=== PATIENT | male | born 1960 | race Caucasian/White ===

== ENCOUNTER 2020-07-26 13:08 | Emergency (ER) | payer OTHER, SELFPAY ==
[2020-07-26 13:14] VITALS: BP 157/119; PULSE 104; RESP 16; TEMP 36.6; O2SAT 96
--- NOTE | 2020-07-26 14:09 | ED.GENADULT ---
HPI - General Adult General Chief complaint: Upper Respiratory Infection Stated complaint: pos acid reflux/sore throat Time Seen by Provider: 07/26/20 13:24 Source: patient and RN notes reviewed Mode of arrival: ambulatory Limitations: no limitations History of Present Illness HPI narrative: Patient presents today complaining of sore throat/acid reflux symptoms. This is a chronic issue for patient that he has been dealing with since at least November per his medical records. He has seen his PCP and continuity editor, Dr. Workman several times. He had an EGD done in November as well that showed gastritis. He has been on and off omeprazole. Today he states that the omeprazole was causing, choking that I was passing out , so he is no longer taking any sort of PPI or histamine zhen. He last saw his PCP in April for dizziness, mentioned his GERD symptoms and was restarted on Prilosec, but is not taking it currently. States he is coming to urgent care today for evaluation because he has spent thousands of dollars with GI and PCP and does not feel like they are curing him of his symptoms. He is hoping that we can get to the bottom of his symptoms today and get him started on some medication for treatment. Patient continues to smoke, drink quite a bit of alcohol, drinks soda, and has not made strides to change his diet in any way. MD complaint: GERD Related Data Home Medications Medication Instructions Recorded Confirmed mv-[id number]-vit C-Glu-Janny [id number] 250 mg PO DAILY 11/21/19 04/09/20 [Airborne (with lysine acetate)] Allergies Allergy/AdvReac Type Severity Reaction Status Date / Time No Known Allergies Allergy Verified 04/09/20 16:41 Review of Systems Review of Systems: Narrative: CONSTITUTIONAL: Denies body aches, fever, chills, or sweats. EYES: Denies visual changes, redness, or discharge. ENT: Denies rhinorrhea, congestion, sore throat, or otalgia. CARDIOVASCULAR: Denies chest pain, palpitations, or edema. RESPIRATORY: Denies cough or dyspnea. GASTROINTESTINAL: Denies abdominal pain, nausea, vomiting, or diarrhea. GERD GENITOURINARY: Denies dysuria or hematuria. SKIN: Denies rash, itching, or wounds. MUSCULOSKELETAL: Denies back pain, joint pain, or myalgia. NEUROLOGIC: Denies headache, numbness, tingling, or weakness. PSYCH: Denies depression or anxiety. [facility]LY [facility] Past Medical History Medical History (Updated 07/26/20 @ 14:15 by Negin Orozco, [facility], ) Adenomatous colon polyp Gastritis GERD (gastroesophageal reflux disease) Hypertension Tobacco abuse Social History Social History (Updated 07/26/20 @ 14:15 by Negin Orozco, [facility], ) Smoking status: Current every day smoker Tobacco type: cigarettes Second hand tobacco smoke exposure: Yes Alcohol intake: current Substance use: never Substance use type: does not use Comments At time of signature, I have reviewed and agree with nursing past medical, surgical, social and family history unless otherwise noted. Please see nursing chart for further information. There is no relevant family history pertinent to the presenting complaint Exam Narrative: Exam Narrative: GENERAL: Well-appearing, well-nourished, and in no acute distress. HEAD: Normocephalic, atraumatic. EYES: EOMI. No redness or drainage. Conjunctivae normal. ENT: Mucous membranes pink and moist. Nares clear. No rhinorrhea. Throat normal. Uvula midline. NECK: Normal AROM. Supple. No lymphadenopathy. CHEST: No respiratory distress. Clear to auscultation. HEART: Regular rate and rhythm. No murmur appreciated. Normal peripheral pulses. ABDOMEN: Soft, nontender, nondistended, normal active bowel sounds. MUSCULOSKELETAL: No bony tenderness. EXTREMITIES: Normal range of motion. No edema. SKIN: Warm, dry, no rash. Capillary refill normal. Normal skin turgor. NEURO: No focal deficits. Alert and oriented x3. Gait steady. PSYCH: Normal affect. No signs of depression or anxiety.
== END 2020-07-26 13:48 | disposition home or self-care (01) ==
PROVIDERS: Emergency Provider Nurse Practitioner; PCP Family Medicine
DX: K21.9 Gastro-esophageal reflux disease without esophagitis (principal); F17.210 Nicotine dependence, cigarettes, uncomplicated; I10 Essential (primary) hypertension
CPT/HCPCS: 99213; G0463

== ENCOUNTER 2022-10-07 14:56 | Emergency (ER) | payer OTHER, SELFPAY ==
--- NOTE | 2022-10-07 14:57 | ED.URI ---
HPI - URI/Sore Throat General Chief Complaint: Eye Problems Stated Complaint: pink eye Time Seen by Provider: 10/07/22 14:58 Source: patient Mode of arrival: ambulatory Limitations: no limitations History of Present Illness HPI Narrative: Abdullahi is a 62-year-old male patient presenting to the clinic today with complaints of possible pinkeye. 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 He reports he has had some bilateral eye itching and clear drainage coming from bilateral eyes. He denies any visual changes. Related Data Allergies Allergy/AdvReac Type Severity Reaction Status Date / Time hydrochlorothiazide Allergy Rash Verified 10/07/22 15:04 lisinopril Allergy Rash Verified 10/07/22 15:04 Review of Systems Review of Systems: Pertinent positives per HPI. Patient denies any fever, chills, rash, headache, visual changes, dizziness, cough, runny nose, sore throat, shortness of breath, chest pain, palpitations, nausea, vomiting, diarrhea, constipation, abdominal pain, or any urinary issues. PMFSH Past Medical History Medical History Adenomatous colon polyp Gastritis GERD (gastroesophageal reflux disease) Hypertension Shingles 09/2019 Tobacco abuse Family History Family History Father Heart disease, Onset Age: 60 unknown reason Dx Mother Diabetes mellitus Mother Diabetes mellitus Social History Social History Smoking packs per day: 1 Smoking cigarettes per day: 20.0 Years smoked: 43 Smoking pack-years: 43.00 Smoking status: Current every day smoker Tobacco type: cigarettes Second hand tobacco smoke exposure: Yes Alcohol intake: current Alcohol use details: Drinks 1 bottle of wine every day in the evening Substance use: never Substance use type: does not use Comments At the time of my signature, I reviewed and agree with the nursing past medical, surgical, social, and family history. There is no relevant family history pertinent to the patient complaint. Exam Narrative: General: Well-developed, well nourished, in no apparent distress Head: Normocephalic, atraumatic Eyes: Pupils equally round and reactive to light bilaterally, EOM intact, sclera and conjunctive injected, clear discharge, lids with mild swelling bilateral Ears: TMs intact and clear, ear canals clear, no drainage, grossly hearing normal. Nose: Nares patent, no discharge, no inflammation, no sinus tenderness. Mouth: Oropharynx without lesions or masses, good dentition, MMM. Neck: Supple, trachea midline, no enlargement of anterior or posterior cervical nodes, no thyroid masses or goiter palpable. Cardio: Regular rate and rhythm, s1 and s2 normal, no murmur appreciated. Resp: Clear to auscultation bilaterally anteriorly and posteriorly, no rhonchi, rales, wheezing or rubs Course Course Emergency Course: Portions of this record may have been created with voice recognition software. Level of Care: Express Care Visit Vital Signs Vital signs: Vital signs reviewed MDM - URI/Sore Throat MDM Narrative Medical decision making narrative: At the time of visit patient is resting comfortably on the exam table. I suspect patient has allergic conjunctivitis. Prescription for TobraDex was sent to the pharmacy to cover any secondary bacterial infection. Supportive measures were discussed with the patient he voiced understanding of discharge instruction and agrees to treatment plan Differential Diagnosis Differential diagnosis: Likely other (Allergic conjunctivitis) Discharge Plan Discharge Clinical Impression: Acute allergic conjunctivitis of both eyes Patient Disposition: Home, Self-Care Condition: Stable Instructions: Antibiotic Form, Conjunctivitis (ED) Additional Instructions:
[2022-10-07 15:08] VITALS: BP 135/95; PULSE 102; RESP 16; TEMP 36.9; O2SAT 98
== END 2022-10-07 15:13 | disposition home or self-care (01) ==
PROVIDERS: Emergency Provider Nurse Practitioner Family; PCP Family Medicine
DX: H10.13 Acute atopic conjunctivitis, bilateral (principal); I10 Essential (primary) hypertension; F17.210 Nicotine dependence, cigarettes, uncomplicated
CPT/HCPCS: 99213; G0463

== ENCOUNTER → 2023-04-10 09:10 | Outpatient (CLI) | payer OTHER, SELFPAY ==
--- NOTE | ~2023-04-10 | XR_ITS ---
Clinical Indication: Cough PA and lateral views of the chest: Comparison: None Findings: The lungs are clear, without evidence of focal consolidation or pleural effusion. Possible COPD. Cardiomediastinal silhouette is within normal limits. Bones and soft tissues are unremarkable. Impression: Possible COPD. Clear lungs. Reviewed, dictated and finalized at location . Impression: Possible COPD. Clear lungs.
== END ==
PROVIDERS: PCP Family Medicine; Visit Provider Nurse Practitioner Family
DX: R05.9 Cough, unspecified (principal); R06.00 Dyspnea, unspecified; Z87.891 Personal history of nicotine dependence
CPT/HCPCS: 71046

== ENCOUNTER 2023-04-28 11:01 | Emergency (ER) | payer OTHER, SELFPAY ==
--- NOTE | 2023-04-28 11:02 | ED.SOB ---
HPI - SOB/Dyspnea General Chief Complaint: Shortness of Breath/Dyspnea Stated Complaint: can't breathe/dizzy Time Seen by Provider: 04/28/23 11:01 Source: patient Mode of arrival: ambulatory Limitations: no limitations History of Present Illness HPI Narrative: Abdullahi is a 62-year-old male patient presenting to the clinic today with complaints of difficulty breathing, near syncope, palpitations, and dizziness that occurred approximately 2 hours ago. 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 States initially when symptoms started he felt as though he was going to pass out. Co-worker brought him over to the [facility]. States he does feel less short of breath while sitting on the stretcher. Is a current smoker. States he is bringing up brown phlegm at times. Denies any fever or chills. Related Data Allergies Allergy/AdvReac Type Severity Reaction Status Date / Time No Known Allergies Allergy Verified 04/07/23 15:20 Review of Systems Review of Systems: Pertinent positives per HPI. Patient denies any fever, chills, rash, headache, visual changes, runny nose, sore throat, chest pain, nausea, vomiting, diarrhea, constipation, abdominal pain, or any urinary issues. [facility] Past Medical History Medical History Adenomatous colon polyp Chronic left hip pain Gastritis GERD (gastroesophageal reflux disease) Hypertension Shingles 09/2019 Tobacco abuse Family History Family History Father Heart disease, Onset Age: 60 unknown reason Dx Mother Diabetes mellitus Mother Diabetes mellitus Social History Social History Smoking packs per day: 1 Smoking cigarettes per day: 20.0 Years smoked: 43 Smoking pack-years: 43.00 Smoking status: Former smoker Tobacco type: cigarettes Second hand tobacco smoke exposure: Yes Alcohol intake: current Alcohol use details: Drinks 1 bottle of wine every day in the evening Substance use: never Substance use type: does not use Lack of Transportation: No Lack of Food: Never True Current Housing: I Have Housing Concerned About Future Housing: No Difficulty Paying Gas/Electric Bills: No Difficulty Paying for Meds: No Currently Unemployed: No Education: High School Diploma/GED Difficulty w/ Childcare or Family Care: No Occupation/Education: occupation Gender identity (if verbalized by the patient): Male Agree to blood products: Yes Comments At the time of my signature, I reviewed and agree with the nursing past medical, surgical, social, and family history. There is no relevant family history pertinent to the patient complaint. Exam Narrative: General: Well-developed, obese, in no apparent distress Head: Normocephalic, atraumatic Eyes: Pupils equally round and reactive to light bilaterally, EOM intact, sclera and conjunctive clear, no discharge, lids normal Ears: TMs intact and clear, ear canals clear, no drainage, grossly hearing normal. Nose: Nares patent, no discharge, no inflammation, no sinus tenderness. Mouth: Oropharynx without lesions or masses, good dentition, MMM. pallor appearance around lips Neck: Supple, trachea midline, no enlargement of anterior or posterior cervical nodes, no thyroid masses or goiter palpable. Cardio: Tachycardic, sinus rhythm, s1 and s2 normal, no murmur appreciated. Resp: Diminished breath sounds, no rhonchi, rales, wheezing or rubs, able to speak is 6-7 words before taking a breath, SpO2 98% on room air Extremities: No deformity, no edema, no cyanosis, capillary refill less than 2 seconds, peripheral pulses palpable and strong. Course Course Emergency Course: Portions of this record may have been created with voice recognition software. Level of Care: Express Care Visit Vital Si
[2023-04-28 11:10] VITALS: BP 93/64; PULSE 125; RESP 16; TEMP 36.2; O2SAT 98
--- NOTE | 2023-04-28 11:21 | ECG_ITS ---
Measurements Intervals [place] Rate: 119 P: 49 VT: 147 QRS: 51 QRSD: 71 T: 65 QT: 292 QTc: 412 Interpretive Statements SINUS TACHYCARDIA OTHERWISE NORMAL ECG COMPARED TO ECG 04/28/2023 11:24:05 NO CHANGE Electronically Signed On 04-28-2023 16:15:38 CDT by Joshua Carter M.D.
[2023-04-28 11:29] VITALS: PULSE 125; RESP 16
== END 2023-04-28 11:45 | disposition left against medical advice (07) ==
PROVIDERS: Emergency Provider Nurse Practitioner Family; PCP Family Medicine
DX: R00.2 Palpitations (principal); R06.02 Shortness of breath; R42 Dizziness and giddiness; K21.9 Gastro-esophageal reflux disease without esophagitis; I10 Essential (primary) hypertension; F17.210 Nicotine dependence, cigarettes, uncomplicated
CPT/HCPCS: 93005; 99213; G0463

== ENCOUNTER 2023-04-28 11:59 | Observation (INO) | payer OTHER, SELFPAY ==
[2023-04-28] VITALS (33 sets, daily range): BP systolic 77–128; BP diastolic 48–91; PULSE 84–125; RESP 11–32; TEMP 36.4–36.6; O2SAT 96–100; BMI 34.7
--- NOTE | ~2023-04-28 | XR_ITS ---
Portable chest x-ray Comparison: 04/10/2023 Clinical History: Shortness of breath Findings: Lungs are clear, without focal consolidation or pleural effusion. Cardiomediastinal silho uette is stable. Bones and soft tissues are unremarkable. Impression: Clear lungs. Reviewed, dictated and finalized at location . Impression: Clear lungs.
--- NOTE | ~2023-04-28 | CT_ITS ---
EXAMINATION: CT chest abdomen pelvis wo con DATE: 04/28/2023 14:46 INDICATION: Shortness of breath. Hypertension. TECHNIQUE: Computed tomography (CT) of the chest, abdomen, and pelvis was performed without intraveno us contrast. Automated exposure control and iterative reconstruction technique were employed. The dos e-length product was 1633.34 mGy-cm. COMPARISON: None FINDINGS: CHEST CT: Mild bilateral parahilar emphysematous change. Mild atelectasis at the bilateral lung bases. No pneum onia, pulmonary edema or pleural effusion. Heart size normal. Atherosclerotic coronary artery calcifi c location. No pericardial effusion. No pathologically enlarged thoracic lymphadenopathy. There are b ridging osteophytes at multiple levels in the spine, consistent with diffuse idiopathic skeletal hype rostosis (DISH). ABDOMEN/PELVIS CT: Liver, gallbladder, spleen, pancreas, bilateral adrenal glands and kidneys are normal. There is moder ate diverticulosis along the descending and sigmoid colon. There are some wall thickening along the s igmoid colon without surrounding pericholecystic infiltrate stranding to suggest an acute colitis and this may be related to sequela of chronic diverticulitis. Small bowel and appendix are normal. Bladd er is normal. No free intraperitoneal gas or fluid. No pathologically enlarged abdominal or pelvic ly mphadenopathy. Bilateral small fat-containing inguinal hernias. L5 spondylolysis with bilateral pars intra-articular is defects and 8 mm anterolisthesis of L5 on S1. IMPRESSION: 1. Diverticulosis with wall thickening along a portion of the mid sigmoid colon but without surroundi ng inflammatory stranding to suggest acute colitis or diverticulitis. This could represent sequela of chronic diverticulitis but would recommend further evaluation with colonoscopy if this has not been recently performed 2. No acute intrathoracic, abdominal or pelvic process. Reviewed, dictated and finalized at location A. IMPRESSION: 1. Diverticulosis with wall thickening along a portion of the mid sigmoid colon but without surrounding inflammatory stranding to suggest acute colitis or div erticulitis. This could represent sequela of chronic diverticulitis but would r ecommend further evaluation with colonoscopy if this has not been recently perf ormed 2. No acute intrathoracic, abdominal or pelvic process.
--- NOTE | 2023-04-28 12:11 | ECG_ITS ---
Measurements Intervals [place] Rate: 121 P: 47 MD: 142 QRS: 43 QRSD: 78 T: 60 QT: 293 QTc: 416 Interpretive Statements SINUS TACHYCARDIA OTHERWISE NORMAL ECG INTERPRETATION BASED ON A DEFAULT AGE OF 40 YEARS NO PREVIOUS ECG AVAILABLE FOR COMPARISON Electronically Signed On 04-28-2023 16:14:15 CDT by Joshua Carter M.D.
--- NOTE | 2023-04-28 12:14 | ED.SOB ---
HPI - SOB/Dyspnea General Chief Complaint: Shortness of Breath/Dyspnea Stated Complaint: SOB Time Seen by Provider: 04/28/23 12:09 Source: patient Mode of arrival: ambulatory Limitations: no limitations History of Present Illness HPI Narrative: 62 years old white male presents with intermittent shortness of breath on exertion over 2 weeks. Patient reported having similar symptoms months/years ago without a specific diagnosis. But lately got worse. He denied any chest pain, fever, chills, nausea, vomiting, headache, back pain. Patient does not take antiplatelet or anticoagulant medications Related Data Allergies Allergy/AdvReac Type Severity Reaction Status Date / Time No Known Allergies Allergy Verified 04/07/23 15:20 Review of Systems Review of Systems: All systems reviewed & are unremarkable except as noted in HPI and below PMFSH Past Medical History Medical History Adenomatous colon polyp Chronic left hip pain Gastritis GERD (gastroesophageal reflux disease) Hypertension Shingles 09/2019 Tobacco abuse Family History Family History Father Heart disease, Onset Age: 60 unknown reason Dx Mother Diabetes mellitus Mother Diabetes mellitus Social History Social History Smoking packs per day: 1 Smoking cigarettes per day: 20.0 Years smoked: 43 Smoking pack-years: 43.00 Smoking status: Former smoker Tobacco type: cigarettes Second hand tobacco smoke exposure: Yes Alcohol intake: current Alcohol use details: Drinks 1 bottle of wine every day in the evening Substance use: never Substance use type: does not use Lack of Transportation: No Lack of Food: Never True Current Housing: I Have Housing Concerned About Future Housing: No Difficulty Paying Gas/Electric Bills: No Difficulty Paying for Meds: No Currently Unemployed: No Education: High School Diploma/GED Difficulty w/ Childcare or Family Care: No Occupation/Education: occupation Gender identity (if verbalized by the patient): Male Agree to blood products: Yes Exam Narrative: General appearance: Well-developed, well-nourished Skin: Normal color Head: Normocephalic, nontraumatic Eyes: Clear conjunctiva ENT: Oropharynx normal, ears normal, nose normal Neck: Supple, nontender Chest and respiratory: Airway patent, no respiratory distress, no accessory muscle use Heart: Regular rate/rhythm Abdomen: Soft, nontender, no organomegaly, quiet bowel sounds Vascular: Normal peripheral pulses, normal capillary refill. Musculoskeletal: Normal range of motion, nontender back Neurologic: Alert and oriented ?3, [employer] is normal as tested, no gross motor deficit Course Vital Signs Vital signs: Vital Signs Pulse Rate 125 H 04/28/23 12:03 Respiratory Rate 20 04/28/23 12:03 Blood Pressure 95/69 L 04/28/23 12:03 Pulse Oximetry 98 04/28/23 12:03 Oxygen Delivery Room Air 04/28/23 12:03 Pulse Rate 96 04/28/23 15:04 Respiratory Rate 19 04/28/23 15:04 Blood Pressure 126/76 04/28/23 15:04 Pulse Oximetry 100 04/28/23 15:04 Oxygen Delivery Room Air 04/28/23 12:20 MDM - SOB/Dyspnea MDM Narrative Medical decision making narrative: Patient came with dyspnea on exertion for the last few days/weeks. He denies chest pain. Physical examination was unremarkable except for tachycardia. Blood pressure on arrival was 95/69. Later dropped to 80/50. IV fluids started, Differential diagnosis as below. Work-up today showed elevated WBC 11.6, normal coa
[2023-04-28 12:23] LABS: Basophils Absolute Auto 0.1 K/mm3 (0.0-0.1); Basophils Percent Auto 0.6 % (0.2-1.2); Eosinophils Absolute Auto 0.8 K/mm3 (0-0.3); Eosinophils Percent Auto 6.7 % (0-4.4); Hematocrit 49.9 % (42.0-52.0); Hemoglobin 17.4 g/dL (14.0-18.0); Immature Granulocyte Absolute 0.04 K/mm3 (0.00-0.031); Immature Granulocyte Percent A 0.3 % (0-0.5); Lymphocytes Absolute Auto 1.95 K/mm3 (0.9-3.2); Lymphocytes Percent Auto 16.8 % (18.3-44.2); Mean Corpuscular HGB Conc 34.9 g/dl (32-36); Mean Corpuscular Hemoglobin 33.3 pg (26-34); Mean Corpuscular Volume 95.4 fl (80-100); Monocytes Percent Auto 8.5 % (2.6-8.5); Neutrophils Absolute Auto 7.8 K/mm3 (1.3-6.7); Neutrophils Percent Auto 67.1 % (45.5-73.1); Platelet Count Result 263 k/mm3 (150-375); Red Blood Count 5.23 M/mm3 (4.6-6.20); Red Cell Distribution Width 12.5 % (11.5-14.5); White Blood Count 11.6 K/mm3 (4.5-10.0)
[2023-04-28 12:33] LABS: Alanine Aminotransferase 51 U/L (6-50); Albumin Level 4.8 g/dL (3.5-5.1); Alkaline Phosphatase 57 U/L (38-126); Anion Gap 11 mmol/L (8-16); Aspartate Amino Transferase 38 U/L (17-59); Blood Urea Nitrogen 27 mg/dL (9-20); Carbon Dioxide 22 mmol/L (22-30); Chloride 103 mmol/L (98-107); Estimated CRCL calculation 39 ml/min; Estimated Glomerular Filt Rate 32; Glucose 126 mg/dL (65-110); Potassium 4.4 mmol/L (3.4-5.0); Sodium 136 mmol/L (137-145)
[2023-04-28 12:40] LABS: Partial Thromboplastin Time 25.7 SECONDS (22.3-36.8)
[2023-04-28 12:43] LABS: Alveolar/Arterial O2 Gradient 24.6 mmHg; Base Excess ABG 0.3 mEq/l (+/-2.0); Fractional Inspired Oxygen 21 %; HCO3 ABG 23.7 mEq/l (22.0-26.0); Oxygen Content ABG 22.5 %vol (16.0-22.0); Oxygen Saturation ABG 96.7 % (95.0-100.0); Oxyhemoglobin 93.4 % THb (90.0-100.0); PCO2 ABG 34.9 mmHg (35.0-45.0); PO2 ABG 83.3 mmHg (80.0-100.0); PO2 FiO2 Ratio Arterial Blood 3.97 %; Total Hemoglobin 17.1 g/dL (12.0-18.0); pH ABG 7.449 (7.350-7.450)
[2023-04-28 12:45] LABS: Device ROOM AIR; Modified Allen's Test Pass; Site Drawn LEFT RADIAL
[2023-04-28] MEDS: SODIUM CHLORIDE 0.9% IV 1,000 ML 999 ML IV CONT (12:47)
[2023-04-28 13:02] LABS: D Dimer < 0.27 ug/mL (<0.48)
[2023-04-28 13:05] LABS: NT Pro B Type Natriuretic Pept 333 pg/mL (19.9-100); Troponin I 0.016 ng/mL (0.000-0.034)
[2023-04-28] MEDS: SODIUM CHLORIDE 0.9% IV 2,000 ML 999 ML IV CONT (13:42)
[2023-04-28 14:03] LABS: Lactic Acid Reflex 1.7 mmol/L (0.7-2.0)
[2023-04-28 14:06] LABS: CRP < 0.5 mg/dL (<1.0)
[2023-04-28 16:09] LABS: Troponin I < 0.012 ng/mL (0.000-0.034)
[2023-04-28 16:17] LABS: Appearance Urine Clear (Clear); Bacteria Urine None Seen /hpf; Bilirubin Urine Negative (Negative); Blood Urine Negative (Negative); Color Urine Yellow (Yellow); Glucose Urine UA 2+ mg/dL (Negative); Hyaline Casts Urine Present /lpf; Ketones Urine Negative (Negative); Leukocyte Esterase Ur Negative LEU/UL (Negative); Mucus Urine Present /lpf; Nitrate Urine Negative (Negative); Non Pathogenic Casts >20; Protein Urine 1+ mg/dL (Negative); RBC Urine 0-2 /hpf (0-2); Specific Grav Ur 1.015 (1.001-1.035); Squamous Epithelial Cell Urine None seen /hpf (Few); Urobilinogen Urine 0.2 mg/dL (<2.0); WBC Urine 0-5 /hpf; pH Urine 5.5 (5.0-9.0)
[2023-04-28 16:19] LABS: Add Urine Microscopic? YES
--- NOTE | 2023-04-28 16:54 | PC.NURSE ---
Dinner diet tray ordered.
--- NOTE | 2023-04-28 18:25 | PC.NURSE ---
This patient, Mohit Wilson, was admitted to Medical Room 240-. Patient/family oriented to hospital policies and general routines including ID bracelet, bed and alarms, visiting hours, pain management, procedures, bathroom and other care routines, personal items, smoking policy, room service/diet, and visiting hours. Information on how to activate the Rapid Response Team has been discussed. Patient/Family are encouraged to report perceived risks to care and to ask questions if they do not understand what they are told or what they should do.
--- NOTE | 2023-04-28 18:54 | PC.NURSE ---
Attempted to go over medication list with patient. Patient does not know what medications he takes and is unable to have prescriptions brought in.
[2023-04-28] MEDS: SODIUM CHLORIDE 0.9% IV 1,000 ML 100 ML IV CONT (19:22)
--- NOTE | 2023-04-28 20:44 | PM.IMHP ---
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 He has had a lot of exposure to dust and agrees. He has been having trouble keeping up with his counter parts due to dyspnea on exertion. He reports that he feels quite hot any time he exercises and sweats quite heavily. This is not is not unusual for him in is not a change from his baseline. This is been his usual since he was younger age but he is having more difficulty as he ages. He denies any chest pain. He was having some palpitations but a few months ago his primary care provider started him on some metoprolol which stop the palpitations. He denies any lower extremity swelling or orthopnea. He has noticed that when he lays on his right side in bed if he wheezes quite loudly and that this disrupts his sleep. He suspects that he wakes himself up snoring frequently. He reports has noticed that his shortness of breath has gotten worse since he started smoking again a few months ago. He has been having an intermittent cough occasionally productive of brown sputum since he started smoking again. He has noticed some whistling in his chest. He denies any fevers or chills. He has never had a stress test. He was evaluated by his primary care provider on the 07 of April. He was given scripts for prednisone albuterol and Spiriva. It is unclear if the patient ever filled these medications as he cannot tell me what medications he is on at home. He denies any orthopnea or paroxysmal nocturnal dyspnea. He has not had any lower extremity swelling. He reports that he is having frequent cramping of his sides feet and calves. He only drinks 24 oz of water a day in the rest of his fluid intake is alcohol or caffeine. He does have a history of alcohol abuse. Is difficult for me to ascertain exactly how much alcohol he does drink. He reports that he used to drink a bottle of strawberry wine a day but has not been able to find in struck by a wine that he likes. He has subsequently been drinking screw drivers. He tries not to drink but if he has to go into work during the daytime hours and he has been having aortic days recently. He has not had a drink of alcohol in 2 days. He gets irritable and shaky when he has not drink alcohol for a couple of days. He denies ever having been treated for alcohol abuse or alcohol withdrawal in the past. He does have multiple family members who have difficulty with substance abuse including his brother and his son. Review of Systems Review of Systems: 12 systems were reviewed with pertinent positives and negatives per HPI. Except as documented in the HPI, all other systems were reviewed and are negative. [facility] Past Medical History Medical History (Updated 04/29/23 @ 04:05 by Akila Solis DO) Alcohol abuse Chronic left hip pain Dyslipidemia Essential hypertension Gastritis GERD (gastroesophageal reflux disease) Hypertension Shingles 09/2019 Tobacco abuse Vitamin D deficiency Surgical History Surgical History (Updated 04/28/23 @ 20:53 by Akila Solis DO) History of colonoscopy with polypectomy Edematous polyps transverse colon, sigmoid colon History of esophagogastroduodenoscopy (EGD) (11/2019) Lipoma of anterior chest wall Resected 2016 Family History Family History Father Heart disease, Onset Age: 60 unknown reason Dx Mother Diabetes mellitus Mother Diabetes mellitus Social History Social History (Updated 04/29/23 @ 04:00 by Akila Solis,
[2023-04-28] MEDS: TAMSULOSIN HCL 0.4 MG CAPSULE PO (23:03)
[2023-04-28] MEDS: predniSONE 20 MG TABLET 40 MG PO (23:03)
[2023-04-29] VITALS (12 sets, daily range): BP systolic 110–124; BP diastolic 66–87; PULSE 78–123; RESP 18–20; TEMP 36.6–37.2; O2SAT 96–99
[2023-04-29 05:57] LABS: Anion Gap 4 mmol/L (8-16); Blood Urea Nitrogen 25 mg/dL (9-20); Calcium 8.3 mg/dL (8.4-10.2); Carbon Dioxide 25 mmol/L (22-30); Chloride 104 mmol/L (98-107); Estimated CRCL calculation 63 ml/min; Estimated Glomerular Filt Rate 56; Glucose 137 mg/dL (65-110); Potassium 4.6 mmol/L (3.4-5.0); Sodium 133 mmol/L (137-145)
[2023-04-29 06:01] LABS: Hematocrit 43.7 % (42.0-52.0); Hemoglobin 14.6 g/dL (14.0-18.0); Mean Corpuscular HGB Conc 33.4 g/dl (32-36); Mean Corpuscular Volume 98.9 fl (80-100); Mean Platelet Volume 9.6 fl (7.4-10.4); Platelet Count Result 182 k/mm3 (150-375); Red Blood Count 4.42 M/mm3 (4.6-6.20); Red Cell Distribution Width 12.3 % (11.5-14.5); White Blood Count 5.4 K/mm3 (4.5-10.0)
[2023-04-29] MEDS: ALBUTEROL SULFATE NEB 2.5 MG/3 ML INH 5 MG INHALATION ×2 (07:56→13:49)
[2023-04-29] MEDS: IPRATROPIUM BR 0.02% INH SOLN 0.5 MG/2.5 ML VIAL INHALATION ×2 (07:56→13:49)
[2023-04-29] MEDS: ATORVASTATIN 10 MG TABLET PO (09:06)
[2023-04-29] MEDS: predniSONE 20 MG TABLET 40 MG PO (09:06)
[2023-04-29] MEDS: AMOXICILLIN/CLAVULANATE K 875-125 MG TAB 1 TABLET PO (09:06)
[2023-04-29] MEDS: METOPROLOL SUCCINATE EXT REL 25 MG TABCR PO (09:07)
[2023-04-29] MEDS: ENOXAPARIN 40 MG/0.4 ML SYRINGE SUB-Q (09:07)
[2023-04-29] MEDS: PANTOPRAZOLE 40 MG TABLET PO (09:07)
[2023-04-29] MEDS: TAMSULOSIN HCL 0.4 MG CAPSULE PO (09:08)
--- NOTE | 2023-04-29 16:12 | PM.DS ---
DS: Admitting Diagnosis Discharge Date 04/29/23 Admitting Diagnosis Shortness of breath DS: Discharge Diagnosis Discharge Diagnosis (1) MAKAYLA (acute kidney injury): Code(s): N17.9 - Acute kidney failure, unspecified Status: Acute (2) COPD exacerbation: Code(s): J44.1 - Chronic obstructive pulmonary disease with (acute) exacerbation Status: Acute (3) Alcohol abuse: Code(s): F10.10 - Alcohol abuse, uncomplicated Status: Acute (4) Hypertension: Qualifiers: Hypertension type: unspecified Qualified Code(s): I10 - Essential (primary) hypertension Code(s): I10 - Essential (primary) hypertension Status: Acute (5) BPH with obstruction/lower urinary tract symptoms: Code(s): N40.1 - Benign prostatic hyperplasia with lower urinary tract symptoms; N13.8 - Other obstructive and reflux uropathy Status: Acute (6) Dyspnea on exertion: Code(s): R06.09 - Other forms of dyspnea Status: Acute (7) Tobacco abuse: Code(s): Z72.0 - Tobacco use Status: Acute DS: Summary Hospital Course Reason for hospitalization: 62yo male with HTN, GERD and COPD here for shortness of breath with exertion. Please see H&P for details. Hospital Course: Patient presents with dyspnea on exertion likely COPD exacerbation.? Patient does smoke and he was educated about the benefits of smoking cessation. He was having wheezing on admission. CXR was clear. CT Chest showing emphysematous changes. He was started on Prednisone and nebulizer treatments. His cough was productive. Patient noted to have acute kidney injury likely multifactorial due to dehydration with low free water intake, excessive sweating and heavy alcohol use.?He was aeducated about the benefits of abstaining from alcohol use. Also the patient has been taking [id number] muscle relief pills with p.m. formulation probably ibuprofen with Benadryl.?Patient was advised not to take ibuprofen.? WBC 11K but normal on repeat. DDImer was negative. ABG showing 7.45/35/83 on RA. BNP 330. CRP <0.5. BUN 27 and Cr 2.1. Patient received between 2-3 L of fluid bolus in the ER and was admitted and continued on maintenance IV fluids.?Meloxicam, hydrochlorothiazide and lisinopril were held. CT A/P showed diverticulosis with wall thickening but without evidence of inflammation. Patient advised of these findings and that a Colonoscopy is recommended. He also had atherosclerotic coronary calcifications. Troponin negative x2. EKG showing sinus tachycardia otherwise normal. He had clinical improvement. SOB better. Cough mildly productive. No CP. He is requesting discharge. He overall did well and was able to be discharged home on 04/29/23. Status at Discharge Cognitive/behavioral status at discharge: Stable Time Spent with Patient Time attestation: Total time spent providing and/or coordinating discharge services: 35 minutes Time spent: Greater than 30 minutes Exam Narrative: AF 98.9 115/71 110 18 98% ra Gen - NARD Chest - CTA bilaterally, nml RR CV - RRR S1/S2. Tele shownig no significant dysrhythmias Abd - Soft, obese, NT Ext - No pedal edema Psych - Nml mood and affect Skin - Warm and dry DS: Data Data Completed and Pending Labs on day of discharge: Labs from last 24 hours 04/29/23 04/28/23 04:51 15:57 WBC 5.4 RBC 4.42 L Hgb 14.6 Hct 43.7 MCV 98.9 MCH 33.0 MCHC 33.4 RDW 12.3 Plt Count 182 MPV 9.6 Sodium 133 L Potassium 4.6 Chloride 104 Carbon Dioxide 25 Anion Gap 4 L BUN 25 H Creatinine 1.30 Estim Creat Clear Calc 63 Estimated GFR 56 L Glucose 137 H Calcium 8.3 L Urine Color Yellow Urine Appearance Clear Urine pH 5.5 Ur Specific Terry 1.015 Urine Protein 1+ H Urine Glucose (UA) 2+ H Urine Ketones Negative Ur Blood (Man) Negative Urine Nitrate Negative Urine Bilirubin Negative Urine Urobilinogen 0.2 Le
--- NOTE | 2023-05-05 10:15 | PC.NURSE ---
Blood cx are negative. Dr. Jennifer mancera.
== END 2023-04-29 17:30 | disposition home or self-care (01) ==
LOC: ANHED 15:48 → ANH2MED 18:21
PROVIDERS: Admitting Provider Internal Medicine; Emergency Provider Emergency Medicine; PCP Family Medicine; Visit Provider Internal Medicine
DX: N17.9 Acute kidney failure, unspecified (principal); J44.1 Chronic obstructive pulmonary disease with (acute) exacerbation; G89.29 Other chronic pain; M25.551 Pain in right hip; K21.9 Gastro-esophageal reflux disease without esophagitis; I10 Essential (primary) hypertension; E78.5 Hyperlipidemia, unspecified; E55.9 Vitamin D deficiency, unspecified; F10.10 Alcohol abuse, uncomplicated; N40.1 Benign prostatic hyperplasia with lower urinary tract symptoms; R06.09 Other forms of dyspnea; K57.90 Diverticulosis of intestine, part unspecified, without perforation or abscess without bleeding; R00.0 Tachycardia, unspecified; R94.31 Abnormal electrocardiogram [ECG] [EKG]; F17.210 Nicotine dependence, cigarettes, uncomplicated; F12.90 Cannabis use, unspecified, uncomplicated; Z79.51 Long term (current) use of inhaled steroids; Z79.52 Long term (current) use of systemic steroids; Z79.899 Other long term (current) drug therapy
CPT/HCPCS: 36415; 36600; 71045; 71250; 74176; 80048; 80053; 81001; 82805; 83605; 83880; 84484; 85025; 85027; 85380; 85610; 85730; 86140; 87040; 93005; 94640; 96360; 96361; 96372; 99285; A9270; G0378; J1650; J7030; J7512

== ENCOUNTER → 2023-05-10 13:37 | Outpatient (CLI) | payer OTHER, SELFPAY ==
--- NOTE | ~2023-05-10 | XR_ITS ---
Clinical Indication: Shortness of breath PA and lateral views of the chest: Comparison: 04/28/2023 Findings: The lungs are clear, without evidence of focal consolidation or pleural effusion. Cardiome diastinal silhouette is within normal limits. Bones and soft tissues are unremarkable. Impression: Normal chest. Reviewed, dictated and finalized at location . Impression: Normal chest.
== END ==
PROVIDERS: PCP Family Medicine; Visit Provider Nurse Practitioner Family
DX: R06.02 Shortness of breath (principal)
CPT/HCPCS: 71046

== ENCOUNTER 2023-05-22 09:32 | Emergency (ER) | payer OTHER, SELFPAY ==
[2023-05-22 09:46] VITALS: BP 79/62; PULSE 120; RESP 16; TEMP 36.3; O2SAT 97
[2023-05-22 09:48] VITALS: BP 79/62; PULSE 120; RESP 16; TEMP 36.3; O2SAT 97
--- NOTE | 2023-05-22 09:55 | ED.SOB ---
HPI - SOB/Dyspnea General Chief Complaint: Shortness of Breath/Dyspnea Stated Complaint: SOB, Sweating, Blood pressure low Time Seen by Provider: 05/22/23 09:50 Source: patient, RN notes reviewed and old records reviewed Mode of arrival: ambulatory Limitations: no limitations History of Present Illness HPI Narrative: 62 year old male presents to express care with complaints of working today at [employer] and becoming short of breath, hot sweaty and dizzy and feeling like he was going to pass out. Blood pressure 79/62 at time of triage and patient is on Lisinopril with HCTZ which he took this morning.Patient was in the hospital 04/28/2023 with similar symptoms and this was his first day back to work. Patient reports history of COPD and is daily smoker of .5 to 1 pack of cigarettes daily, reports no recent alcohol use but has history of alcohol abuse. MD elicited complaint: shortness of breath (hot sweaty and dizzy at work today.) Pertinent past history: other (was in hospital 04/28/2023 with similar symptoms) Onset (ago): hour(s) (within past 2 hours while at work) Treatment prior to arrival: none Related Data Allergies Allergy/AdvReac Type Severity Reaction Status Date / Time No Known Allergies Allergy Verified 05/22/23 09:43 Review of Systems Review of Systems: CONSTITUTIONAL: Denies fever, chills, or sweats. EYES: Denies visual changes, redness, or discharge. ENT: Denies rhinorrhea, congestion, sore throat, or otalgia. CARDIOVASCULAR: Denies chest pain at this time, palpitations, or edema. RESPIRATORY: Denies acute cough positive dyspnea with exertion. GASTROINTESTINAL: Denies abdominal pain, nausea, vomiting, or diarrhea. GENITOURINARY: Denies dysuria or hematuria. SKIN: Denies rash or itching. MUSCULOSKELETAL: Denies back pain, joint pain, or myalgia. NEUROLOGIC: Denies headache, numbness, states feelings of dizziness occurring at work with weakness. PSYCHIATRIC: Denies anxiety or depression. All systems reviewed & are unremarkable except as noted in HPI and below PMFSH Past Medical History Medical History (Updated 05/22/23 @ 20:35 by Dolores Uriarte NP) Alcohol abuse Chronic left hip pain Chronic obstructive pulmonary disease Dyslipidemia Essential hypertension Gastritis Gastroesophageal reflux disease Hypertension Shingles (09/2019) Tobacco abuse Vitamin D deficiency Surgical History Surgical History (Updated 05/22/23 @ 17:38 by Tala Fraire PA-C) History of colonoscopy with polypectomy Edematous polyps transverse colon, sigmoid colon History of esophagogastroduodenoscopy (EGD) (11/2019) Status post excision of lipoma (2017) Anterior chest wall. Family History Family History Father Heart disease, Onset Age: 60 unknown reason Dx Mother Diabetes mellitus Mother Diabetes mellitus Social History Social History Social History: He reports that he has been for many years. He is currently estranged from his daughter. His son has issues with drug abuse. 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 He has smoked between 0.5-1 pack of cigarettes per day. He started smoking at age 13. He had stop smoking for 2 years (however he was vaping during the time that he stated he quit smoking) but recently started again earlier this year. He has history of long-term alcohol abuse. He denies any illicit substance abuse. Code status: Full code Surrogate decision maker: The patient states that he is estranged from his daughter and would not trust his son to make decisions for him due to his sons drug history. He reports that his brother who is listed as his contact lens flashing puncher also has an issue with alcohol abuse and he does not know if he would be able to make a decision in the case of emergency. He states he does not have anyone he would trust in such a roll.
== END 2023-05-22 09:56 | disposition short-term general hospital (02) ==
PROVIDERS: Emergency Provider Registered Nurse; PCP Family Medicine
DX: I95.9 Hypotension, unspecified (principal); R06.00 Dyspnea, unspecified; F17.210 Nicotine dependence, cigarettes, uncomplicated; F12.90 Cannabis use, unspecified, uncomplicated; J44.9 Chronic obstructive pulmonary disease, unspecified; E78.5 Hyperlipidemia, unspecified; I10 Essential (primary) hypertension; K21.9 Gastro-esophageal reflux disease without esophagitis; E55.9 Vitamin D deficiency, unspecified
CPT/HCPCS: 99212; G0463

== ENCOUNTER 2023-05-22 10:18 | Observation (INO) | payer OTHER, SELFPAY ==
[2023-05-22] VITALS (16 sets, daily range): BP systolic 73–137; BP diastolic 41–98; PULSE 85–116; RESP 13–18; TEMP 36.6–37.2; O2SAT 95–100; BMI 34.4
--- NOTE | ~2023-05-22 | XR_ITS ---
XR chest 2V DATE: 05/22/2023 11:13 INDICATION: Chest pain, dyspnea. COPD. TECHNIQUE: AP and lateral views COMPARISON: 05/10/2023 2 view chest FINDINGS: Moderate bilateral hyperinflation consistent with clinical diagnosis of COPD. No pulmonary infiltrate or consolidation, pleural effusion or pulmonary vascular congestion or pneumothorax. Normal heart size. No hilar or mediastinal enlargement. Osteopenia. Degenerative spurring of the thoracic and lumbar spine. IMPRESSION: COPD; no active cardiopulmonary disease Reviewed, dictated and finalized at location B.
--- NOTE | 2023-05-22 10:25 | ECG_ITS ---
Measurements Intervals [place] Rate: 112 P: 45 [place]: 120 QRS: 41 QRSD: 77 T: 64 QT: 327 QTc: 448 Interpretive Statements SINUS TACHYCARDIA BORDERLINE ST ABNORMALITY- DIFFUSE LEADS ABNORMAL ECG COMPARED TO ECG 04/28/2023 12:24:52 ST DEVIATION NOW PRESENT Electronically Signed On 05-22-2023 10:59:29 CDT by Roberto Flores D.O.
[2023-05-22 10:49] LABS: Basophils Absolute Auto 0.1 K/mm3 (0.0-0.1); Basophils Percent Auto 0.6 % (0.2-1.2); Eosinophils Absolute Auto 0.4 K/mm3 (0-0.3); Eosinophils Percent Auto 4.2 % (0-4.4); Hematocrit 48.5 % (42.0-52.0); Hemoglobin 16.7 g/dL (14.0-18.0); Immature Granulocyte Absolute 0.04 K/mm3 (0.00-0.031); Immature Granulocyte Percent A 0.4 % (0-0.5); Lymphocytes Absolute Auto 1.51 K/mm3 (0.9-3.2); Lymphocytes Percent Auto 15.1 % (18.3-44.2); Mean Corpuscular HGB Conc 34.4 g/dl (32-36); Mean Corpuscular Hemoglobin 33.8 pg (26-34); Mean Corpuscular Volume 98.2 fl (80-100); Mean Platelet Volume 9.2 fl (7.4-10.4); Monocytes Absolute Auto 1.1 K/mm3 (0.1-0.6); Monocytes Percent Auto 10.8 % (2.6-8.5); Neutrophils Absolute Auto 6.9 K/mm3 (1.3-6.7); Neutrophils Percent Auto 68.9 % (45.5-73.1); Platelet Count Result 215 k/mm3 (150-375); Red Blood Count 4.94 M/mm3 (4.6-6.20); Red Cell Distribution Width 13.2 % (11.5-14.5)
[2023-05-22 10:58] LABS: Alanine Aminotransferase 44 U/L (6-50); Albumin Level 4.4 g/dL (3.5-5.1); Alkaline Phosphatase 49 U/L (38-126); Anion Gap 8 mmol/L (8-16); Aspartate Amino Transferase 40 U/L (17-59); Bilirubin,Total 0.8 mg/dL (0.2-1.3); Blood Urea Nitrogen 31 mg/dL (9-20); Calcium 9.5 mg/dL (8.4-10.2); Carbon Dioxide 28 mmol/L (22-30); Chloride 101 mmol/L (98-107); Estimated CRCL calculation 43 ml/min; Estimated Glomerular Filt Rate 36; Glucose 116 mg/dL (65-110); Potassium 4.2 mmol/L (3.4-5.0); Sodium 137 mmol/L (137-145)
[2023-05-22] MEDS: SODIUM CHLORIDE 0.9% IV 1,000 ML 999 ML IV CONT ×2 (11:17→12:26)
--- NOTE | 2023-05-22 11:34 | ED.SOB ---
HPI - SOB/Dyspnea General Chief Complaint: Shortness of Breath/Dyspnea Stated Complaint: dyspnea/hypotension Time Seen by Provider: 05/22/23 10:41 Source: patient and RN notes reviewed Mode of arrival: ambulatory Limitations: no limitations History of Present Illness HPI Narrative: This is a 62 year old male with history of hypertension and COPD who presents for evaluation of shortness of breath. Patient states he was recently discharged for COPD. He went back to work for the first time today. 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 He went to [facility] for assessment and he was found to be hypotensive. Patient reports he has been checking his blood pressure over the past few days and he has noticed that his blood pressure has been low. He has continued to take his lisinopril with HCTZ despite having this low blood pressure. He denies having chest pain earlier with his symptoms. He denies shortness of breath since he left work. Related Data Allergies Allergy/AdvReac Type Severity Reaction Status Date / Time No Known Allergies Allergy Verified 05/22/23 09:43 Review of Systems Constitutional: Constitutional: Denies weakness Cardiovascular: Cardiovascular: Denies syncope, Denies rapid heart rate, Denies irregular heart rhythm, Denies leg edema and Denies dyspnea Respiratory: Respiratory: Denies chest congestion, Denies hemoptysis, Denies excessive phlegm production and Reports dyspnea Gastrointestinal: Gastrointestinal: Denies abdominal pain, Denies hematochezia, Denies diarrhea and Denies vomiting Genitourinary: Genitourinary: Denies hematuria, Denies dysuria, Denies penile discharge and Denies testicular pain Musculoskeletal: Musculoskeletal: Denies joint swelling, Denies loss of height and Denies muscle weakness Neurologic: Denies syncope, Denies focal weakness and Denies weakness PMFSH Past Medical History Medical History (Updated 05/22/23 @ 18:40 by Guerda Howard MD) Alcohol abuse Chronic left hip pain Chronic obstructive pulmonary disease Dyslipidemia Essential hypertension Gastritis Gastroesophageal reflux disease Hypertension Shingles (09/2019) Tobacco abuse Vitamin D deficiency Surgical History Surgical History (Updated 05/22/23 @ 17:38 by Tala Fraire PA-C) History of colonoscopy with polypectomy Edematous polyps transverse colon, sigmoid colon History of esophagogastroduodenoscopy (EGD) (11/2019) Status post excision of lipoma (2017) Anterior chest wall. Family History Family History Father Heart disease, Onset Age: 60 unknown reason Dx Mother Diabetes mellitus Mother Diabetes mellitus Social History Social History Social History: He reports that he has been for many years. He is currently estranged from his daughter. His son has issues with drug abuse. 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 He has smoked between 0.5-1 pack of cigarettes per day. He started smoking at age 13. He had stop smoking for 2 years (however he was vaping during the time that he stated he quit smoking) but recently started again earlier this year. He has history of long-term alcohol abuse. He denies any illicit substance abuse. Code status: Full code Surrogate decision maker: The patient states that he is estranged from his daughter and would not trust his son to make decisions for him due to his sons drug history. He reports that his brother who is listed as his blocker and cutter contact lens also has an issue with alcohol abuse and he does not know if he would be able to make a decision in the case of emergency. He states he does not have anyone he would trust in such a roll. Smoking packs per day: 1 Smoking cigarettes per day: 20.0 Years
--- NOTE | 2023-05-22 12:33 | PC.NURSE ---
pt made aware we need a urine sample. pt reports he is unable to go at this time. urinal at bedside. pt refusing straight cath.
[2023-05-22 12:46] LABS: Lactic Acid Reflex 1.4 mmol/L (0.7-2.0)
[2023-05-22 12:58] LABS: Troponin I < 0.012 ng/mL (0.000-0.034)
[2023-05-22] MEDS: SODIUM CHLORIDE 0.9% IV 1,000 ML 125 ML IV CONT (14:03)
[2023-05-22 14:26] LABS: Appearance Urine Clear (Clear); Bacteria Urine None Seen /hpf; Bilirubin Urine Negative (Negative); Blood Urine Negative (Negative); Color Urine Yellow (Yellow); Glucose Urine UA Trace mg/dL (Negative); Ketones Urine Negative (Negative); Leukocyte Esterase Ur Negative LEU/UL (Negative); Mucus Urine Present /lpf; Need Manual Microscopic Reviewed; Nitrate Urine Negative (Negative); Protein Urine 2+ mg/dL (Negative); RBC Urine 0-2 /hpf (0-2); Specific Grav Ur 1.013 (1.001-1.035); Squamous Epithelial Cell Urine None seen /hpf (Few); Urobilinogen Urine 0.2 mg/dL (<2.0); WBC Urine 0-5 /hpf; pH Urine 5.5 (5.0-9.0)
[2023-05-22 14:28] LABS: Add Urine Microscopic? YES
--- NOTE | 2023-05-22 15:15 | PC.NURSE ---
This patient, Mohit Wilson, was admitted to [facility] Surg Room 306-02. Patient/family oriented to hospital policies and general routines including ID bracelet, bed and alarms, visiting hours, pain management, procedures, bathroom and other care routines, personal items, smoking policy, room service/diet, and visiting hours. Information on how to activate the Rapid Response Team has been discussed. Patient/Family are encouraged to report perceived risks to care and to ask questions if they do not understand what they are told or what they should do.
--- NOTE | 2023-05-22 17:32 | PM.IMHP ---
H&P: HPI History of Present Illness Date/Time: 05/22/23 17:30 Chief Complaint: Shortness of breath Narrative: This is a 62-year-old male smoker with hypertension, chronic obstructive pulmonary disease, alcohol abuse, and gastroesophageal reflux disease who presented to the emergency department for evaluation of shortness of breath. The patient provides the following history. He is known to the hospitalist service from a recent overnight admission on 04/28/2023 at which time he was admitted for acute kidney injury and COPD exacerbation after presenting with shortness of breath. Kidney injury was felt to be related to a combination of dehydration, excessive sweating, and heavy alcohol use. Meloxicam, lisinopril, and hydrochlorothiazide were placed on hold, he was hydrated, and he improved rapidly. Lisinopril-hydrochlorothiazide was held on discharge however the patient started taking it right away. He saw his doctor in follow-up 5 days ago and he was referred to pulmonology due to continued shortness of breath. 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 [facility] to [facility] after he was found to be hypotensive with a blood pressure of 73/41. He received 2 L normal saline bolus and his blood pressures have stabilized. Labs were significant for an elevated creatinine from baseline and he is being admitted in this setting for further treatment and evaluation. At the time my evaluation he is feeling better and has been able to ambulate to the bathroom without feelings of weakness and shortness of breath. He denies fever, chills, sweats, chest pain, pleuritic pain, cough, nausea, vomiting, and diarrhea. He also denies dysuria and hematuria but reports nocturia as detailed above. He was recently started on Flomax however did not get that filled. No rash or joint swelling. Review of Systems Review of Systems: Twelve systems were reviewed and are negative except for as per HPI. [facility] Past Medical History Medical History Alcohol abuse Chronic left hip pain Chronic obstructive pulmonary disease Dyslipidemia Essential hypertension Gastritis Gastroesophageal reflux disease Hypertension Shingles (09/2019) Tobacco abuse Vitamin D deficiency Surgical History Surgical History (Updated 05/22/23 @ 17:38 by Tala Fraire PA-C) History of colonoscopy with polypectomy Edematous polyps transverse colon, sigmoid colon History of esophagogastroduodenoscopy (EGD) (11/2019) Status post excision of lipoma (2016) Anterior chest wall. Family History Family History Father Heart disease, Onset Age: 60 unknown reason Dx Mother Diabetes mellitus Mother Diabetes mellitus Social History Social History (Updated 05/22/23 @ 23:03 by Tala Fraire PA-C) Social History: He reports that he has been for many years. He is currently estranged from his daughter. His son has issues with drug abuse. 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 He has smoked between 0.5-1 pack of cigarettes per day. He started smoking at age 13. He had stop smoking for 2 years (however he was vaping during the time that he stated he quit smoking) but recently started again earlier this year. He has history of long-term alcohol abuse but he has not had much alcohol for the past several weeks. He denies any illicit substance abuse. Code status: Full code Surrogate decision maker: The patient states that he is estranged from his daughter and would not trust his son to make decisions for him due to his sons drug history. He reports that his brother who is listed as his contact lens blocker also has an issue with alcohol abuse and he does not know if he would be able to make a decision in
[2023-05-22] MEDS: hydrOXYzine pamoate 25 MG CAPSULE 50 MG PO (21:28)
[2023-05-22] MEDS: TAMSULOSIN HCL 0.4 MG CAPSULE PO (21:29)
[2023-05-23] VITALS (9 sets, daily range): BP systolic 122–138; BP diastolic 75–92; PULSE 87–93; RESP 18; TEMP 36.2; O2SAT 97–98
[2023-05-23] MEDS: SODIUM CHLORIDE 0.9% IV 1,000 ML 125 ML IV CONT (02:36)
[2023-05-23 06:37] LABS: Basophils Percent Auto 0.5 % (0.2-1.2); Eosinophils Absolute Auto 0.5 K/mm3 (0-0.3); Hematocrit 46.1 % (42.0-52.0); Hemoglobin 15.2 g/dL (14.0-18.0); Immature Granulocyte Absolute 0.03 K/mm3 (0.00-0.031); Immature Granulocyte Percent A 0.5 % (0-0.5); Lymphocytes Absolute Auto 2.04 K/mm3 (0.9-3.2); Lymphocytes Percent Auto 34.6 % (18.3-44.2); Mean Corpuscular Hemoglobin 33.1 pg (26-34); Mean Corpuscular Volume 100.4 fl (80-100); Mean Platelet Volume 9.8 fl (7.4-10.4); Monocytes Absolute Auto 0.7 K/mm3 (0.1-0.6); Neutrophils Absolute Auto 2.6 K/mm3 (1.3-6.7); Neutrophils Percent Auto 43.4 % (45.5-73.1); Platelet Count Result 140 k/mm3 (150-375); Red Blood Count 4.59 M/mm3 (4.6-6.20); Red Cell Distribution Width 13.2 % (11.5-14.5); White Blood Count 5.9 K/mm3 (4.5-10.0)
[2023-05-23 06:48] LABS: Alanine Aminotransferase 34 U/L (6-50); Albumin Level 3.5 g/dL (3.5-5.1); Alkaline Phosphatase 39 U/L (38-126); Anion Gap 5 mmol/L (8-16); Aspartate Amino Transferase 31 U/L (17-59); Bilirubin,Total 0.8 mg/dL (0.2-1.3); Blood Urea Nitrogen 19 mg/dL (9-20); Calcium 8.1 mg/dL (8.4-10.2); Carbon Dioxide 20 mmol/L (22-30); Chloride 108 mmol/L (98-107); Estimated CRCL calculation 88 ml/min; Estimated Glomerular Filt Rate > 60; Glucose 106 mg/dL (65-110); Magnesium 1.9 mg/dL (1.6-2.3); Potassium 3.9 mmol/L (3.4-5.0); Sodium 133 mmol/L (137-145)
[2023-05-23] MEDS: UMECLIDINIUM/VILANTEROL 62.5-25 MCG ELLIPTA 1 PUFF INHALATION (08:02)
[2023-05-23] MEDS: PANTOPRAZOLE 40 MG TABLET PO (09:12)
[2023-05-23] MEDS: ATORVASTATIN 10 MG TABLET PO (09:13)
[2023-05-23] MEDS: MAGNESIUM OXIDE 400 MG TABLET PO (09:13)
--- NOTE | 2023-05-23 09:52 | PM.DS ---
DS: Admitting Diagnosis Discharge Date 05/23/23 Admitting Diagnosis Acute kidney injury DS: Summary Hospital Course Hospital Course: This is a 62-year-old male smoker with hypertension, chronic obstructive pulmonary disease, alcohol abuse, and gastroesophageal reflux disease who presented to the emergency department for evaluation of shortness of breath. The patient provides the following history. He is known to the hospitalist service from a recent overnight admission on 04/28/2023 at which time he was admitted for acute kidney injury and COPD exacerbation after presenting with shortness of breath. Kidney injury was felt to be related to a combination of dehydration, excessive sweating, and heavy alcohol use. Meloxicam, lisinopril, and hydrochlorothiazide were placed on hold, he was hydrated, and he improved rapidly. Lisinopril-hydrochlorothiazide was held on discharge however the patient started taking it right away. He saw his doctor in follow-up 5 days ago and he was referred to pulmonology due to continued shortness of breath. 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 [facility] was [facility] after he was found to be hypotensive with a blood pressure of 73/41. He received 2 L normal saline bolus and his blood pressures have stabilized. Labs were significant for an elevated creatinine from baseline and he is being admitted in this setting for further treatment and evaluation. At this time his renal functions have completely normalized. He is not hypertensive. He does not have any symptoms at all. This is his 2nd admission with acute kidney injury and he does not know why he is having it. At this time I will stop his lisinopril hydrochlorothiazide and put him on amlodipine. He will need to follow-up with his PCP for optimum blood pressure management since amlodipine may not be enough. Time Spent with Patient Time attestation: Total time spent providing and/or coordinating discharge services: DS: Data Data Completed and Pending Labs on day of discharge: Labs from last 24 hours 05/23/23 05/22/23 05/22/23 06:09 14:00 12:27 WBC 5.9 RBC 4.59 L Hgb 15.2 Hct 46.1 MCV 100.4 H MCH 33.1 MCHC 33.0 RDW 13.2 Plt Count 140 L MPV 9.8 Immature Gran % (Auto) 0.5 Neut % (Auto) 43.4 L Lymph % (Auto) 34.6 [place] % (Auto) 12.0 H Eos % (Auto) 9.0 H Baso % (Auto) 0.5 Lymph # (Auto) 2.04 [place] # (Auto) 0.7 H Eos # (Auto) 0.5 H Baso # (Auto) 0.0 Abs Immat Gran (auto) 0.03 Absolute Neuts (auto) 2.6 Absolute Nucleated RBC 0.0 Nucleated RBC % 0.0 Sodium 133 L Potassium 3.9 Chloride 108 H Carbon Dioxide 20 L Anion Gap 5 L BUN 19 D Creatinine 0.90 Estim Creat Clear Calc 88 Estimated GFR > 60 Glucose 106 Lactic Acid 1.4 Calcium 8.1 L Magnesium 1.9 Total Bilirubin 0.8 AST 31 ALT 34 Alkaline Phosphatase 39 Troponin I < 0.012 Total Protein 6.0 L Albumin 3.5 Urine Color Yellow Urine Appearance Clear Urine pH 5.5 Ur Specific [place] 1.013 Urine Protein 2+ H Urine Glucose (UA) Trace H Urine Ketones Negative Ur Blood (Man) Negative Urine Nitrate Negative Urine Bilirubin Negative Urine Urobilinogen 0.2 Add Ur Microanalysis Reviewed Leukocyte Esterase Rfl Negative Urine RBC 0-2 Urine WBC 0-5 Ur Squamous Epith Cells None seen Urine Bacteria None seen Urine Casts 11-20 Urine Mucus Present 05/22/23 10:42 WBC 10.0 RBC 4.94 Hgb 16.7 Hct 48.5 MCV 98.2 MCH 33.8 MCHC 34.4 RDW 13.2 Plt Count 215 MPV 9.2 Immature Gran % (Auto) 0.4 Neut % (Auto) 68.9 Lymph % (Auto) 15.1 L [place] % (Auto) 10.8 H Eos % (Auto) 4.2 Baso % (Auto) 0.6 Lymph # (Auto) 1.51 [place] # (Auto) 1.1 H Eos # (Auto) 0.4 H
--- NOTE | 2023-05-23 11:02 | PC.NURSE ---
Pt is discharging home today. Pt IV removed. Pt tolerated well. Pt participated and contributed in plan of care. Will continue to monitor pt until discharge.
== END 2023-05-23 12:17 | disposition home or self-care (01) ==
LOC: ANHED 10:59 → ANH3MEDSUR 14:26
PROVIDERS: Admitting Provider Internal Medicine; Emergency Provider General Practice; PCP Family Medicine; Visit Provider Hospitalist
DX: N17.9 Acute kidney failure, unspecified (principal); I95.9 Hypotension, unspecified; J44.9 Chronic obstructive pulmonary disease, unspecified; I10 Essential (primary) hypertension; R07.9 Chest pain, unspecified; R94.31 Abnormal electrocardiogram [ECG] [EKG]; R35.1 Nocturia; F10.10 Alcohol abuse, uncomplicated; G89.29 Other chronic pain; M25.552 Pain in left hip; E78.5 Hyperlipidemia, unspecified; K21.9 Gastro-esophageal reflux disease without esophagitis; E55.9 Vitamin D deficiency, unspecified; F17.210 Nicotine dependence, cigarettes, uncomplicated; F12.90 Cannabis use, unspecified, uncomplicated; E66.9 Obesity, unspecified; Z68.34 Body mass index [BMI] 34.0-34.9, adult; Z79.51 Long term (current) use of inhaled steroids; Z79.899 Other long term (current) drug therapy
CPT/HCPCS: 36415; 71046; 80053; 81001; 83605; 83735; 84484; 85025; 93005; 94640; 96360; 96361; 99285; A9270; G0378; J7030

== ENCOUNTER 2023-06-01 13:46 | Outpatient (CLI) | payer OTHER, SELFPAY ==
[2023-06-01 19:36] LABS: Basophils Absolute Auto 0.1 K/mm3 (0.0-0.1); Basophils Percent Auto 0.9 % (0.2-1.2); Eosinophils Absolute Auto 0.7 K/mm3 (0-0.3); Eosinophils Percent Auto 9.6 % (0-4.4); Hematocrit 48.3 % (42.0-52.0); Hemoglobin 16.8 g/dL (14.0-18.0); Immature Granulocyte Absolute 0.03 K/mm3 (0.00-0.031); Immature Granulocyte Percent A 0.4 % (0-0.5); Lymphocytes Absolute Auto 1.92 K/mm3 (0.9-3.2); Mean Corpuscular HGB Conc 34.8 g/dl (32-36); Mean Corpuscular Hemoglobin 33.2 pg (26-34); Mean Corpuscular Volume 95.5 fl (80-100); Mean Platelet Volume 9.7 fl (7.4-10.4); Monocytes Absolute Auto 0.8 K/mm3 (0.1-0.6); Monocytes Percent Auto 10.9 % (2.6-8.5); Neutrophils Absolute Auto 4.1 K/mm3 (1.3-6.7); Neutrophils Percent Auto 53.2 % (45.5-73.1); Platelet Count Result 264 k/mm3 (150-375); Red Blood Count 5.06 M/mm3 (4.6-6.20); Red Cell Distribution Width 13.4 % (11.5-14.5); White Blood Count 7.7 K/mm3 (4.5-10.0)
[2023-06-01 19:48] LABS: Alanine Aminotransferase 41 U/L (6-50); Albumin Level 4.7 g/dL (3.5-5.1); Alkaline Phosphatase 60 U/L (38-126); Anion Gap 8 mmol/L (8-16); Aspartate Amino Transferase 39 U/L (17-59); Bilirubin,Total 0.5 mg/dL (0.2-1.3); Blood Urea Nitrogen 19 mg/dL (9-20); Calcium 9.3 mg/dL (8.4-10.2); Carbon Dioxide 25 mmol/L (22-30); Chloride 106 mmol/L (98-107); Estimated Glomerular Filt Rate > 60; Glucose 102 mg/dL (65-110); Potassium 3.7 mmol/L (3.4-5.0); Sodium 139 mmol/L (137-145)
== END 2023-06-01 13:47 | disposition home or self-care (01) ==
PROVIDERS: PCP Family Medicine; Visit Provider Nurse Practitioner Family
DX: I10 Essential (primary) hypertension (principal); Z13.0 Encounter for screening for diseases of the blood and blood-forming organs and certain disorders involving the immune mechanism
CPT/HCPCS: 36415; 80053; 85025

== ENCOUNTER 2023-12-28 14:24 | Outpatient (CLI) | payer OTHER, SELFPAY ==
[2023-12-28 19:21] LABS: Basophils Absolute Auto 0.1 K/mm3 (0.0-0.1); Basophils Percent Auto 0.6 % (0.2-1.2); Eosinophils Absolute Auto 1.4 K/mm3 (0-0.3); Hematocrit 49.1 % (42.0-52.0); Hemoglobin 16.6 g/dL (14.0-18.0); Immature Granulocyte Absolute 0.01 K/mm3 (0.00-0.031); Immature Granulocyte Percent A 0.1 % (0-0.5); Lymphocytes Absolute Auto 2.04 K/mm3 (0.9-3.2); Lymphocytes Percent Auto 25.3 % (18.3-44.2); Mean Corpuscular HGB Conc 33.8 g/dl (32-36); Mean Corpuscular Hemoglobin 33.1 pg (26-34); Mean Corpuscular Volume 97.8 fl (80-100); Mean Platelet Volume 10.3 fl (7.4-10.4); Monocytes Absolute Auto 0.8 K/mm3 (0.1-0.6); Monocytes Percent Auto 9.8 % (2.6-8.5); Neutrophils Absolute Auto 3.8 K/mm3 (1.3-6.7); Neutrophils Percent Auto 47.2 % (45.5-73.1); Platelet Count Result 215 k/mm3 (150-375); Red Blood Count 5.02 M/mm3 (4.6-6.20); Red Cell Distribution Width 12.5 % (11.5-14.5); White Blood Count 8.1 K/mm3 (4.5-10.0)
[2023-12-28 19:33] LABS: Alanine Aminotransferase 52 U/L (6-50); Albumin Level 4.3 g/dL (3.5-5.1); Alkaline Phosphatase 67 U/L (38-126); Anion Gap 2 mmol/L (8-16); Aspartate Amino Transferase 58 U/L (17-59); Bilirubin,Total 0.7 mg/dL (0.2-1.3); Blood Urea Nitrogen 20 mg/dL (9-20); Carbon Dioxide 32 mmol/L (22-30); Chloride 105 mmol/L (98-107); Estimated Glomerular Filt Rate > 60; Glucose 120 mg/dL (65-110); Potassium 4.4 mmol/L (3.4-5.0); Sodium 139 mmol/L (137-145)
[2023-12-28 19:54] LABS: Iron 129 ug/dL (49-181)
[2023-12-28 20:03] LABS: Percent Iron Saturation 46 % (20-50)
== END 2023-12-28 14:25 | disposition home or self-care (01) ==
LOC: ANHGOSHLAB 14:25
PROVIDERS: PCP Family Medicine; Visit Provider Nurse Practitioner Family
DX: D64.9 Anemia, unspecified (principal); I99.9 Unspecified disorder of circulatory system; N17.9 Acute kidney failure, unspecified; I95.9 Hypotension, unspecified; J44.9 Chronic obstructive pulmonary disease, unspecified
CPT/HCPCS: 36415; 80053; 83540; 83550; 85025

== ENCOUNTER 2024-12-30 14:55 | Emergency (ER) | payer OTHER, SELFPAY ==
--- NOTE | ~2024-12-30 | XR_ITS ---
CHEST RADIOGRAPH, PA AND LATERAL CLINICAL HISTORY: cough/sob/copd, smoker . COMPARISON: 05/22/2023 TECHNIQUE: PA and lateral views of the chest. FINDINGS The cardiomediastinal silhouette is unremarkable. The lungs are clear. Visualized osseous structures and soft tissues are unremarkable. IMPRESSION: No focal infiltrate or effusion. Reviewed, dictated and finalized at location A. RNATIONAL MARKETING INTERN
--- NOTE | 2024-12-30 14:59 | ED_ITS ---
HPI - URI/Sore Throat General Chief Complaint: Upper Respiratory Infection Stated Complaint: Trouble Breathing Time Seen by Provider: 12/30/24 14:59 Source: patient Mode of arrival: ambulatory Limitations: no limitations History of Present Illness HPI Narrative: Abdullahi is a 64-year-old male patient presenting to the clinic today with complaints of difficulty breathing x3 days. He reports coughing up some white bubbly phlegm. Denies any chest pain but does have some right-sided back pain with coughing taking deep breath. Denies any fevers, chills, or body aches. History of COPD. He is a current smoker-smokes half a pack a day MD elicited complaint: cough Related Data Allergies Allergy/AdvReac Type Severity Reaction Status Date / Time No Known Allergies Allergy Verified 12/30/24 15:07 Review of Systems Review of Systems: Pertinent positives per HPI. Patient denies any fever, chills, rash, headache, visual changes, dizziness, cough, shortness of breath, chest pain, palpitations, nausea, vomiting, diarrhea, constipation, abdominal pain, or any urinary issues. [facility] Past Medical History Medical History Noncompliance by declining intervention or support Fungal dermatitis Acute carpal tunnel syndrome Chronic obstructive pulmonary disease Gastroesophageal reflux disease Essential hypertension Vitamin D deficiency Dyslipidemia Chronic left hip pain Alcohol abuse Gastritis Tobacco abuse Hypertension Shingles (09/2019) Surgical History Surgical History Status post excision of lipoma (2016) Anterior chest wall. History of esophagogastroduodenoscopy (EGD) (11/2019) History of colonoscopy with polypectomy Edematous polyps transverse colon, sigmoid colon Family History Family History Father Heart disease, Onset Age: 60 unknown reason Dx Mother Diabetes mellitus Mother Diabetes mellitus Social History Social History Social History: He reports that he has been for many years. He is currently estranged from his daughter. His son has issues with drug abuse. 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 He has smoked between 0.5-1 pack of cigarettes per day. He started smoking at age 13. He had stop smoking for 2 years (however he was vaping during the time that he stated he quit smoking) but recently started again earlier this year. He has history of long-term alcohol abuse but he has not had much alcohol for the past several weeks. He denies any illicit substance abuse. Code status: Full code Surrogate decision maker: The patient states that he is estranged from his daughter and would not trust his son to make decisions for him due to his sons drug history. He reports that his brother who is listed as his personnel coordinator also has an issue with alcohol abuse and he does not know if he would be able to make a decision in the case of emergency. He states he does not have anyone he would trust in such a roll. Caffeine-soda Smoking packs per day: 0.5 Smoking cigarettes per day: 10.0 Years smoked: 50 Smoking pack-years: 25.00 Smoking status: Current some day smoker Tobacco type: cigarettes Second hand tobacco smoke exposure: Yes Alcohol intake: current Drinks per week: 42 Alcohol use details: [place] light Substance use: current Substance use type: marijuana Other substance usage details: smokes Do You Feel Safe in your Home?: Yes Lack of Transportation: No Lack of Food: Never True Current Housing: I Do Not Have Housing Concerned About Future Housing: No Difficulty Paying Gas/Electric Bills: No Difficulty Paying for Meds: No Currently Unemployed: No Education: High School Diploma/GED Difficulty w/ Childcare or Family Care: No Occupation/Education: occupation Gender identity (if verbalized by the patient): Male Spiritual care concerns: No Agree to blood products: Yes Comments At the time of my signature, I reviewed and agree with the nursing past medical, surgical, social, and family history. There is no relevant family history pertinent to the patient complaint. Exam Narrative: General: Well-developed, well nourished, in no apparent distress Head: Normocephalic, atraumatic Eyes: Pupils equally round and reactive to light bilaterally, EOM intact, sclera and conjunctive clear, no discharge, lids normal Ears: TMs intact and clear, ear canals clear, no drainage, grossly hearing normal. Nose: Nares patent, clear nasal discharge, no inflammation, no sinus tenderness. Mouth: Oral pharynx without lesions or masses, good dentition, MMM. Postnasal drip Neck: Supple, trachea midline, no enlargement of anterior or posterior cervical nodes, no thyroid masses or goiter palpable. Cardio: Regular rate and rhythm, s1 and s2 normal, no murmur appreciated. Resp: Faint crackles in the right lower lobe, no rhonchi, wheezing or rubs Course Course Emergency Course: Portions of this record may have been created with voice recognition software. Level of Care: Express Care Visit Vital Signs Vital signs: Vital Signs Oxygen Delivery Room Air 12/30/24 15:00 Temperature 35.9 C L 12/30/24 15:01 Pulse Rate 107 H 12/30/24 15:01 Respiratory Rate 20 12/30/24 15:01 Blood Pressure 135/89 12/30/24 15:01 Pulse Oximetry 95 12/30/24 15:01 Oxygen Delivery Room Air 12/30/24 15:00 Vital signs reviewed MDM - URI/Sore Throat MDM Narrative Medical decision making narrative: At the time of visit patient is resting comfortably on the exam table. Patient appears to be nontoxic. Diagnostics: Chest x-rays negative for any acute cardiopulmonary process. Plan: I suspect patient has COPD exacerbation. Prescription for prednisone, azithromycin, and albuterol inhaler was sent to the pharmacy. Supportive measures were discussed with the patient and they voiced understanding discharge instructions and agrees to treatment plan. Return precautions reviewed Differential Diagnosis Differential diagnosis: Likely upper respiratory infection, otitis media, sinusitis, viral infection, bronchitis, influenza, pharyngitis and other (COVID) Imaging Data Radiologist's impression: ITS Impressions Chest X-Ray 12/30/24 15:34 IMPRESSION: No focal infiltrate or effusion. Discharge Plan Discharge Clinical Impression: COPD exacerbation Patient Disposition: Home, Self-Care Condition: Stable Instructions: Antibiotic Form, COPD (Chronic Obstructive Pulmonary Disease) (ED) Additional Instructions: Chest x-rays negative for any acute cardiopulmonary process. Take prescription medications only as prescribed-albuterol inhaler, prednisone, and azithromycin Increase fluids and stay well hydrated Tylenol/motrin for pain/fever Flonase and OTC antihistamines as directed Vicks vapor rub to open sinuses Sinus rinses for congestion Cepacol spray, cough drops, throat lozenges, warm tea with honey/lemon, gargle salt water to soothe throat BRAT diet for diarrhea Clear liquids x 24 hours then advance as tolerated for nausea/vomiting Go to the ED if you develop a worsening in your condition- high fever not controlled by Tylenol or Motrin, dehydration, weakness, lethargy, shortness of breath, or chest pain. Follow up with your PCP in 3-5 days if symptoms persist. Patient Language: Burkinan Prescriptions: New azithromycin 250 mg tablet See Rx Instructions .ROUTE .COMPLEX Qty: 6 0RF Rx Instructions: For 250 mg dose pack: take 500 mg today (day 1), then 250 mg for 4 days (days 2-5) prednisone 20 mg tablet 40 mg PO DAILY 5 Days Qty: 10 0RF albuterol sulfate 90 mcg/actuation HFA aerosol inhaler 2 puff inhalation Q4-6H PRN (Reason: shortness of breath or wheezing) 30 Days Qty: 8.5 0RF No Action albuterol sulfate [ProAir HFA] 90 mcg/actuation HFA aerosol inhaler 2 puff inhalation Q4H PRN (Reason: shortness of breath or wheezing) Qty: 8.5 1RF cyclobenzaprine 5 mg tablet 5 mg PO TID PRN (Reason: back and hip pain) Qty: 60 0RF methylprednisolone [Medrol (Stew)] 4 mg tablets,dose pack See Rx Instructions PO PER PKG DIR Qty: 21 0RF Rx Instructions: PO PER PKG DIR fluticasone propion-salmeterol [Wixela Inhub] 100-50 mcg/dose blister with device 1 inh inhalation Q12H Qty: 180 1RF metoprolol succinate 25 mg tablet extended release 24 hr 25 mg PO DAILY Qty: 90 0RF Rx Instructions: NEEDS APPOINTMENT FOR FURTHER REFILLS Follow-up/Referrals: PHYSICIAN,OIL PIPELINE DISPATCHER [Primary Care Provider] - Time of Disposition: 15:51 Quality NIHSS Nursing Documentation ED NIHSS nursing documentation: reviewed/agree
[2024-12-30 15:01] VITALS: BP 135/89; PULSE 107; RESP 20; TEMP 35.9; O2SAT 95
== END 2024-12-30 15:54 | disposition home or self-care (01) ==
PROVIDERS: Emergency Provider Nurse Practitioner Family
DX: J44.1 Chronic obstructive pulmonary disease with (acute) exacerbation (principal); I10 Essential (primary) hypertension; K21.9 Gastro-esophageal reflux disease without esophagitis; E78.5 Hyperlipidemia, unspecified; F17.210 Nicotine dependence, cigarettes, uncomplicated; F12.90 Cannabis use, unspecified, uncomplicated
CPT/HCPCS: 71046; 99213; G0463

== ENCOUNTER 2025-02-03 13:57 | Emergency (ER) | payer OTHER, SELFPAY ==
--- NOTE | 2025-02-03 14:00 | ED_ITS ---
HPI - Wound/Laceration General Chief Complaint: Wound/Laceration Stated Complaint: Wound Infection Source: patient and RN notes reviewed Mode of arrival: ambulatory Limitations: no limitations History of Present Illness HPI narrative: Patient is a 64-year-old male who presents to the [facility] with request for wound check. Patient states that he had a scaly rash to the right side of his head. His primary care physician referred him to dermatology. He states that he saw the power driven brush maker on Monday. The power driven brush maker removed an area of skin to send to pathology. Patient wanted to make sure that the area is not infected. He presents with a 1 cm circular wound to the right frontal region of scalp with good wound healing. No erythema or drainage noted. Related Data Home Medications ?Medication ?Instructions ?Recorded ?Confirmed ?Last Taken ?Type aspirin 81 mg tablet,delayed 81 mg PO DAILY 12/31/24 12/31/24 Unknown History release (Adult Low Dose Aspirin) mecobalamin (vitamin B12) 500 mcg mcg PO 12/31/24 12/31/24 Unknown History chewable tablet Allergies Allergy/AdvReac Type Severity Reaction Status Date / Time No Known Allergies Allergy Verified 02/03/25 14:08 Review of Systems Review of Systems: CONSTITUTIONAL: Denies fever, chills, or sweats. EYES: Denies visual changes, redness, or discharge. ENT: Denies otalgia and sore throat CARDIOVASCULAR: Denies chest pain, palpitations, or edema. RESPIRATORY: Denies cough or dyspnea. GASTROINTESTINAL: Denies abdominal pain, nausea, vomiting, or diarrhea. GENITOURINARY: Denies dysuria or hematuria. SKIN: Reports wound to frontal area of scalp. MUSCULOSKELETAL: Denies back pain, joint pain, or myalgia. NEUROLOGIC: Denies headache, numbness, or weakness. Pertinent positives per HPI. [facility] Past Medical History Medical History Peripheral neuropathy Noncompliance by declining intervention or support Fungal dermatitis Acute carpal tunnel syndrome Chronic obstructive pulmonary disease Gastroesophageal reflux disease Essential hypertension Vitamin D deficiency Dyslipidemia Chronic left hip pain Alcohol abuse Gastritis Tobacco abuse Hypertension Shingles (09/2019) Surgical History Surgical History Status post excision of lipoma (2016) Anterior chest wall. History of esophagogastroduodenoscopy (EGD) (11/2019) History of colonoscopy with polypectomy Edematous polyps transverse colon, sigmoid colon Family History Family History Father Heart disease, Onset Age: 60 unknown reason Dx Mother Diabetes mellitus Mother Diabetes mellitus Social History Social History Social History: He reports that he has been for many years. He is currently estranged from his daughter. His son has issues with drug abuse. 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 He has smoked between 0.5-1 pack of cigarettes per day. He started smoking at age 13. He had stop smoking for 2 years (however he was vaping during the time that he stated he quit smoking) but recently started again earlier this year. He has history of long-term alcohol abuse but he has not had much alcohol for the past several weeks. He denies any illicit substance abuse. Code status: Full code Surrogate decision maker: The patient states that he is estranged from his daughter and would not trust his son to make decisions for him due to his sons drug history. He reports that his brother who is listed as his instrument person also has an issue with alcohol abuse and he does not know if he would be able to make a decision in the case of emergency. He states he does not have anyone he would trust in such a roll. Caffeine-soda Smoking packs per day: 0.5 Smoking cigarettes per day: 10.0 Years smoked: 50 Smoking pack-years: 25.00 Smoking status: Current some day smoker Tobacco type: cigarettes Second hand tobacco smoke exposure: Yes Alcohol intake: current Drinks per week: 42 Alcohol use details: [place] light Substance use: current Substance use type: marijuana Other substance usage details: smokes Do You Feel Safe in your Home?: Yes Lack of Transportation: No Lack of Food: Never True Current Housing: I Do Not Have Housing Concerned About Future Housing: No Difficulty Paying Gas/Electric Bills: No Difficulty Paying for Meds: No Currently Unemployed: No Education: High School Diploma/GED Difficulty w/ Childcare or Family Care: No Occupation/Education: occupation Gender identity (if verbalized by the patient): Male Spiritual care concerns: No Agree to blood products: Yes Comments At the time of my signature, I reviewed and agree with the nursing past medical, surgical, social, and family history. There is no relevant family history pertinent to the patient complaint. Exam Narrative: GENERAL: This is a well-nourished, well-developed patient, in no apparent distress. HEAD: normocephalic, atraumatic. EYES: Sclera clear/white. Vision is grossly intact. EARS: External ears normal. Hearing grossly intact. NOSE: External nose normal with no obvious nasal discharge, nares without redness, no rhinorrhea. THROAT: Mucous membranes moist, posterior pharynx clear. NECK: Neck supple, non-tender without lymphadenopathy, masses or thyromegaly. CARDIOVASCULAR: Regular rate and rhythm without murmurs, gallops, or rubs. RESPIRATORY: Clear to auscultation. Breath sounds equal bilaterally. No wheezes, rales, or rhonchi. GASTROINTESTINAL: Abdomen soft, non-tender, nondistended. Bowel sounds are active. No hepato-splenomegaly, or palpable masses. No guarding. SKIN: 1 cm circular wound to the right frontal region of the scalp with good wound healing. No erythema. No drainage. NEURO: awake, alert, and oriented to person, place and time. There were no obvious focal neurologic abnormalities. Course Course Level of Care: Express Care Visit Vital Signs Vital signs: Reviewed MDM - Wound/Laceration MDM Narrative Medical decision making narrative: Keep wound clean and dry. Monitor for signs of infection. Apply Vaseline as directed by your power driven brush maker. Follow-up with your power driven brush maker as needed. Differential Diagnosis Differential diagnosis: Likely laceration, abrasion, avulsion of skin and other Critical Care Time Critical Care Time Critical Care Time: No Discharge Plan Discharge Clinical Impression: Visit for wound check Patient Disposition: Home, Self-Care Condition: Stable Instructions: Chronic Wounds (ED) Additional Instructions: Keep wound clean and dry. Monitor for signs of infection. Apply Vaseline as directed by your power driven brush maker. Follow-up with your power driven brush maker as needed. Patient Language: Palestinian Prescriptions: No Action azithromycin 250 mg tablet See Rx Instructions .ROUTE .COMPLEX Qty: 6 0RF Rx Instructions: For 250 mg dose pack: take 500 mg today (day 1), then 250 mg for 4 days (days 2-5) prednisone 20 mg tablet 40 mg PO DAILY 5 Days Qty: 10 0RF aspirin [Adult Low Dose Aspirin] 81 mg tablet,delayed release (DR/EC) 81 mg PO DAILY mecobalamin (vitamin B12) 500 mcg tablet,chewable PO albuterol sulfate 90 mcg/actuation HFA aerosol inhaler 2 puff inhalation Q4-6H PRN (Reason: shortness of breath or wheezing) 30 Days Qty: 8.5 1RF magnesium oxide 400 mg (241.3 mg magnesium) tablet 400 mg PO DAILY Qty: 90 0RF gabapentin 300 mg capsule 300 mg PO BID Qty: 60 3RF Rx Instructions: take 1 capsule daily for 4 days, then take 1 capsule every 12 hours. metoprolol succinate 25 mg tablet extended release 24 hr 25 mg PO DAILY Qty: 90 0RF Follow-up/Referrals: PHYSICIAN,WRAPPER OFF [Primary Care Provider] - Time of Disposition: 14:17
[2025-02-03 14:15] VITALS: BP 145/96; PULSE 98; RESP 20; TEMP 36.4; O2SAT 96
== END 2025-02-03 14:19 | disposition home or self-care (01) ==
PROVIDERS: Emergency Provider Nurse Practitioner
DX: Z48.01 Encounter for change or removal of surgical wound dressing (principal); F17.210 Nicotine dependence, cigarettes, uncomplicated; F12.90 Cannabis use, unspecified, uncomplicated; J44.9 Chronic obstructive pulmonary disease, unspecified; I10 Essential (primary) hypertension; E78.5 Hyperlipidemia, unspecified; G62.9 Polyneuropathy, unspecified; K21.9 Gastro-esophageal reflux disease without esophagitis; Z79.82 Long term (current) use of aspirin
CPT/HCPCS: 99211; G0463